=== PATIENT | female | born 1950 | race African-American/Black ===

== ENCOUNTER 2023-05-13 18:58 | Emergency (ER) | payer MEDICARE, MEDICAID ==
[~2023-05-13] VITALS: Ht 170.2 cm; Wt 98.0 kg
[2023-05-13 19:02] VITALS: BP 214/150; PULSE 120; RESP 18; TEMP 97.8; O2SAT 99
[2023-05-13] MEDS ORDERED: ACETAMINOPHEN 325MG TABLET PO ONE (19:15)
[2023-05-13] MEDS ORDERED: AMLODIPINE 5MG TABLET PO ONE (19:15)
[2023-05-13] MEDS ORDERED: AMLO5TAB88 MT (21:03)
[2023-05-13] MEDS ORDERED: TOPUD MT (21:03)
== END 2023-05-13 22:00 | disposition left against medical advice (07) ==
LOC: ER 18:58
DX: S82.831A Other fracture of upper and lower end of right fibula, initial encounter for closed fracture (principal); I10 Essential (primary) hypertension; W50.2XXA Accidental twist by another person, initial encounter; Y93.89 Activity, other specified; Y92.89 Other specified places as the place of occurrence of the external cause; Y99.8 Other external cause status
CPT/HCPCS: 73610; 73630; 99284